=== PATIENT | female | born 1975 | race Two or more races ===

== ENCOUNTER 2019-02-20 19:52 | Emergency (ER) | payer MEDICAID ==
[~2019-02-20] VITALS: Ht 165.1 cm; Wt 77.1 kg
--- NOTE | 2019-02-20 20:12 | NUR ---
BIBF. C/O " R HAND/L KNEE/R ANKLE/BACK PAIN AFTER FALLING A FEW HRS AGO" AOX4. -SOB -N/V -DIZZY. -ACUTE DISTRESS.
[2019-02-20] MEDS ORDERED: IBUPROFEN 600 MG TABLET PO ONE ×2 (21:21→21:30)
[2019-02-20 22:00] VITALS: BP 120/77
== END 2019-02-20 22:01 | disposition home or self-care (01) ==
LOC: ER 19:54
DX: S63.632A Sprain of interphalangeal joint of right middle finger, initial encounter (principal); S29.012A Strain of muscle and tendon of back wall of thorax, initial encounter; S80.02XA Contusion of left knee, initial encounter; S49.81XA Other specified injuries of right shoulder and upper arm, initial encounter; W01.0XXA Fall on same level from slipping, tripping and stumbling without subsequent striking against object, initial encounter; Y93.89 Activity, other specified; Y92.89 Other specified places as the place of occurrence of the external cause; Y99.8 Other external cause status
CPT/HCPCS: 72074-TC; 73030-TC; 73130-TC; 73560-TC; 73590-TC

== ENCOUNTER 2021-03-06 03:05 | Emergency (ER) | payer MEDICAID ==
[~2021-03-06] VITALS: Ht 165.1 cm; Wt 87.5 kg
[2021-03-06 03:12] VITALS: BP 139/96
[2021-03-06] MEDS ORDERED: METH4TAB3 PO (04:37)
[2021-03-06] MEDS ORDERED: HYDR-500 PO (04:37)
[2021-03-06] MEDS ORDERED: BETA15CR5 TP (04:37)
--- NOTE | 2021-03-06 04:50 | NUR ---
Patient discharged to home in stable condition. Written and verbal after care instructions given. Patient verbalizes understanding of instruction.
== END 2021-03-06 04:50 | disposition home or self-care (01) ==
LOC: ER 03:08
DX: R21 Rash and other nonspecific skin eruption (principal); Z79.899 Other long term (current) drug therapy
CPT/HCPCS: 99283; J7040